=== PATIENT | female | born 1980 | race Caucasian/White ===

== ENCOUNTER → 2021-05-17 08:50 | Outpatient (CLI) | payer SELFPAY | DX: Z02.1 Encounter for pre-employment examination (principal) ==

== ENCOUNTER → 2021-08-26 07:26 | Outpatient (CLI) | payer OTHER, SELFPAY ==
[2021-08-25 18:41] LABS: Vitamin B12 670 pg/mL (239-931)
== END ==
PROVIDERS: PCP Family Medicine; Visit Provider Nurse Practitioner Family
DX: H33.102 Unspecified retinoschisis, left eye (principal); H53.9 Unspecified visual disturbance; R29.2 Abnormal reflex; R51.9 Headache, unspecified
CPT/HCPCS: 82607; 82746

== ENCOUNTER → 2021-09-02 07:15 | Outpatient (CLI) | payer OTHER, SELFPAY ==
--- NOTE | 2021-09-02 07:15 | MR_ITS ---
FINAL REPORT CLINICAL HISTORY: new onset visual disturbance, worsening PUENTE. MIGRAINE HEADACHE. VISUAL DISTURBANCE FOR 2 WEEKS. FINDINGS: Multiplanar MR imaging of the brain was performed without contrast. There is no evidence of intracranial hemorrhage or mass. The ventricular size is normal. There is no evidence of shift of the midline structures. No abnormal extra-axial fluid collection is identified. The posterior fossa and brainstem have an unremarkable appearance. No area of abnormal restricted diffusion is identified. Normal major vessel vascular flow voids are seen. IMPRESSION: Unremarkable brain with no acute intracranial abnormality. Reviewed, Interpreted and Dictated by Gianni Rincon III, MD Transcribed by Mayra Celestin Authenticated and [facility]
== END ==
PROVIDERS: PCP Family Medicine; Visit Provider Nurse Practitioner Family
DX: R51.9 Headache, unspecified (principal); H33.102 Unspecified retinoschisis, left eye; H53.9 Unspecified visual disturbance; R29.2 Abnormal reflex
CPT/HCPCS: 70551

== ENCOUNTER → 2021-09-23 10:29 | Outpatient (CLI) | payer OTHER, SELFPAY | PROVIDERS: Visit Provider Nurse Practitioner Family | DX: R51.9 Headache, unspecified (principal); H33.102 Unspecified retinoschisis, left eye; H53.9 Unspecified visual disturbance; R29.2 Abnormal reflex | CPT/HCPCS: 94762 ==

== ENCOUNTER → 2022-02-07 08:11 | Outpatient (REF) | payer OTHER, SELFPAY | LOC: UTC.OUT 08:11 | PROVIDERS: PCP Family Medicine; Visit Provider Nurse Practitioner | DX: Z20.822 Contact with and (suspected) exposure to COVID-19 (principal) ==

== ENCOUNTER 2023-09-28 16:07 | Outpatient (CLI) | payer OTHER, SELFPAY ==
[2023-09-28 16:24] LABS: Basophils # 0.1 K/mm3 (0-0.2); Basophils % 1.6 % (0.1-2.0); Eosinophils % 0.5 % (0.1-12.0); Hematocrit 42.5 % (37.0-47.0); Hemoglobin 14.6 g/dL (12.2-16.2); Lymphocytes # 1.7 K/mm3 (0.7-4.5); Lymphocytes % 34.7 % (10-50); Mean Corpuscular HGB Conc 34.4 g/dL (31.8-35.4); Mean Corpuscular Hemoglobin 33.1 pg (27.0-31.2); Mean Corpuscular Volume 96.3 fl (81-99); Mean Platelet Volume 8.3 fl (7.4-10.4); Monocytes # 0.3 K/mm3 (0.1-1.0); Monocytes % 5.2 % (1.7-9.3); Neutrophils # 2.9 K/mm3 (1.8-7.8); Neutrophils % 57.9 % (37.0-80.0); Platelet Count 336 K/mm3 (142-424); Red Blood Count 4.41 M/mm3 (4.20-5.40)
[2023-09-28 16:52] LABS: Alanine Aminotransferase 19 U/L (12-78); Albumin Level 4.6 g/dl (3.5-5.0); Albumin/Globulin Ratio 1.6 (1.1-1.8); Alkaline Phosphatase 58 U/L (38-126); Anion Gap 10.5 mEq/L (5-15); Aspartate Amino Transferase 22 U/L (14-36); Bilirubin,Total 0.7 mg/dl (0.2-1.3); Blood Urea Nitrogen 14 mg/dl (7-17); Calcium 9.2 mg/dl (8.4-10.2); Carbon Dioxide 26 mmol/L (22.0-30.0); Chloride 105 mmol/L (98-107); Chol/HDL Ratio 2.6 (1-3.5); Cholesterol 263 mg/dl (140-200); Estimated Glomerular Filt Rate 69 ml/min (>60); GFR (African American) 83 ML/MIN (>60); Globulin 2.9 g/dL (1.3-3.2); Glucose 63 mg/dl (74-100); HDL Cholesterol 102 mg/dl (40-60); Potassium 3.5 mmoL/L (3.5-5.1); Sodium 138 mmol/L (136-145); Total Protein,Serum 7.5 g/dl (6.3-8.2); Triglycerides 46 mg/dl (30-150); Uric Acid 4.2 mg/dl (2.5-6.2); VLDL Cholesterol 9 mg/dL (0-40)
[2023-09-28 17:03] LABS: Direct LDL Cholesterol 130.91 mg/dL (100-129)
[2023-09-28 17:10] LABS: 25-OH Vitamin D, Total 52.6 ng/mL (30-100)
[2023-09-28 17:21] LABS: Hemoglobin A1C 4.3 % (4.0-6.0)
[2023-09-28 17:22] LABS: Thyroid Stimulating Hormone 1.09 uIU/mL (0.465-4.68)
== END 2023-09-28 23:59 | disposition home or self-care (01) ==
LOC: LAB.DROPOF 16:07
PROVIDERS: PCP Nurse Practitioner Obstetrics & Gynecology; Visit Provider Nurse Practitioner Obstetrics & Gynecology
DX: Z01.419 Encounter for gynecological examination (general) (routine) without abnormal findings (principal)
CPT/HCPCS: 80050; 80053; 80061; 82306; 83036; 83525; 84443; 84550; 85025

== ENCOUNTER 2024-06-11 16:06 | Outpatient (CLI) | payer OTHER, SELFPAY ==
--- NOTE | 2024-06-11 16:30 | MM_ITS ---
PROCEDURE INFORMATION: Exam: Bilateral Screening 3D Mammography Exam date and time: 06/11/2024 4:11 PM Age: 44 years old Clinical indication: Screening examination. TECHNIQUE: Imaging protocol: Bilateral Screening tomosynthesis and 2D mammography including computer-aided detection (CAD) when performed. COMPARISON: No relevant prior studies available. FINDINGS: MAMMOGRAPHY: Breast composition: The breasts are heterogeneously dense, which may obscure small masses. Mass: None. Architectural distortion: None. Calcifications: No suspicious calcifications. Asymmetric density: None. Skin thickening: None. Axillary adenopathy: None. Implants: Post pectoral silicone implants are present. The contours are smooth. IMPRESSION: No mammographic evidence of malignancy. Annual screening is recommended unless otherwise clinically indicated. ASSESSMENT: BI-RADS Category 1: Negative.
== END 2024-06-11 23:59 | disposition home or self-care (01) ==
LOC: RAD 16:06
PROVIDERS: PCP Nurse Practitioner Obstetrics & Gynecology; Visit Provider Nurse Practitioner Obstetrics & Gynecology
DX: Z12.31 Encounter for screening mammogram for malignant neoplasm of breast (principal)
CPT/HCPCS: 77063; 77067

== ENCOUNTER 2024-12-08 11:22 | Outpatient (CLI) | payer OTHER, SELFPAY ==
--- OUTSIDE RECORDS SUMMARY | 2023-10-05 11:00 | XMS_ITS ---
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 :1980 A ge:43 Y S ex:Female Date:10/05/2023 Address:[address] [place], [place] [id number] Subjective: * Chief Complaints: * 1 . Check up. * Medical History: Objective: * Vitals: Assessment: Plan: * Treatment: * Images: Billing Information: * Visit Code: * Procedure Codes: * Electronic signature of Abbi Frost MD on 12/09/2024 at 11:24 AM EDT Sign off status: Pending * Provider: Heber Frost M.D. Date: 0 10/05/2023 Generated for Kelyl hinson/Noble/eTransmalonzo on: 1 11:24 AM EDT
[2024-12-08 17:18] LABS: Hematocrit 41.6 % (37.0-47.0); Hemoglobin 13.8 g/dL (12.2-16.2); Immature Granulocytes % 0.2 %; Mean Corpuscular HGB Conc 33.2 g/dL (31.8-35.4); Mean Corpuscular Hemoglobin 31.4 pg (27.0-31.2); Mean Corpuscular Volume 94.5 fl (81-99); Nucleated Red Blood Cells % 0 %; Platelet Count 260 K/mm3 (142-424); Red Blood Count 4.40 M/mm3 (4.20-5.40); Red Cell Distribution Width-SD 43.4 fL; White Blood Count 4.2 K/mm3 (4.8-10.8)
[2024-12-08 18:59] LABS: Alanine Aminotransferase 44 U/L (12-78); Albumin Level 4.6 g/dl (3.5-5.0); Albumin/Globulin Ratio 1.9 (1.1-1.8); Alkaline Phosphatase 89 U/L (38-126); Anion Gap 15.0 mEq/L (5-15); Aspartate Amino Transferase 36 U/L (14-36); Bilirubin,Total 0.9 mg/dl (0.2-1.3); Blood Urea Nitrogen 22 mg/dl (7-17); Calcium 9.3 mg/dl (8.4-10.2); Carbon Dioxide 28 mmol/L (22.0-30.0); Chloride 99 mmol/L (98-107); Cholesterol 309 mg/dl (140-200); Globulin 2.4 g/dL (1.3-3.2); Glucose 51 mg/dl (74-100); HDL Cholesterol 103 mg/dl (40-60); Magnesium 2.2 mg/dl (1.6-2.3); Potassium 4.0 mmoL/L (3.5-5.1); Sodium 138 mmol/L (136-145); Total Protein,Serum 7.0 g/dl (6.3-8.2); Triglycerides 59 mg/dl (30-150)
[2024-12-08 19:04] LABS: Creatinine,Serum 1.90 mg/dl (0.52-1.04); Estimated Glomerular Filt Rate 29 ml/min (>60); GFR (African American) 35 ML/MIN (>60)
[2024-12-08 19:30] LABS: Thyroid Stimulating Hormone 0.94 uIU/mL (0.465-4.68)
[2024-12-08 20:17] LABS: Ferritin 69.0 ng/ml (6.24-137)
[2024-12-08 21:11] LABS: Hemoglobin A1C 4.7 % (4.0-6.0)
--- OUTSIDE RECORDS SUMMARY | 2024-12-09 11:24 | XMS_ITS | Patient Health Record ---
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 Name Role Phone Nithin Frost Primary Care Provider Allergies No Known Allergies Reason For Referral No Information Medications Medication SIG (Take, Route, Frequency, Duration) Notes Start Date End Date Status Qulipta 60 MG 1 tab(s) orally once a day; Duration: 30 day(s) Active Aspirin 81 MG 1 tab(s) orally once a day; Duration: 30 day(s) Active Multiple Vitamin - 1 cap(s) orally once a day; Duration: 30 day(s) Active Norethindrone 0.35 MG 1 tab(s) orally on ce a day; Duration: 28 day(s) Active Melatonin 5 MG 1 tab(s) orally once a day (at bedtime) Active Rizatriptan Benzoate 10 MG 1 tab(s) oral ly once a day Active Plan Of Treatment No Information Insurance Providers Payer Name Payer Address Payer Phone Subscriber Number Group Number Insured Name Patient Relationship to Insured Coverage Start Date Coverage End Date [facility] [address] [address] [place] [phone] [id number] BERNADETTE HUGHES Self - patient is the insured Medical (General) History Medical History History ICD Code migraine headache Surgical History Surgery Date(Month/Year) Breast Augmentation 06/2015 [place] Tooth Extraction 2001 07/21/2017 08/01/2019 Hospitalization History Reason Date(Month/Year) See Above
[2024-12-10 12:15] LABS: Insulin Level Total 3.5 uIU/mL (2.6-24.9)
== END 2024-12-08 23:59 | disposition home or self-care (01) ==
LOC: LAB.DROPOF 12-09 11:22
PROVIDERS: PCP Nurse Practitioner Obstetrics & Gynecology; Visit Provider Nurse Practitioner Obstetrics & Gynecology
DX: Z00.00 Encounter for general adult medical examination without abnormal findings (principal); E55.9 Vitamin D deficiency, unspecified
CPT/HCPCS: 80053; 80061; 82652; 82728; 83036; 83525; 83735; 84443; 85025

== ENCOUNTER 2024-12-12 12:44 | Outpatient (CLI) | payer OTHER, SELFPAY ==
--- OUTSIDE RECORDS SUMMARY | 2023-10-05 11:00 | XMS_ITS ---
Author Organization [facility] Address [address] [facility] [address] [place] [id number] Care Team Providers Care Childcare Worker Name Role Phone Nithin Frost Primary Care Provider REASON FOR VISIT check up Encounters Encounter Location Date Provider Diagnosis [facility] [address] [facility] [address] [facility] [address] [phone] 10/05/2023 Nithin Frost Plan Of Treatment No Information Progress Notes * BERNADETTE HUGHESDOB: 3 (44 yo F)Acc No.[id number]:10/05/2023 Progress Notes Patient: BERNADETTE [facility] Provider: Heber Frost M.D. :1980 A ge:43 Y S ex:Female Date:10/05/2023 Address:[address] [place], [place] [phone] Subjective: * Chief Complaints: * 1 . Check up. * Medical History: Objective: * Vitals: Assessment: Plan: * Treatment: * Images: Billing Information: * Visit Code: * Procedure Codes: * Electronic signature of Abbi Frost MD on 12/15/2024 at 12:47 PM EDT Sign off status: Pending * Provider: Heber Frost M.D. Date: 0 10/05/2023 Generated for Kelly hinson/Noble/eTransmitting on: 1 12:47 PM EDT
[2024-12-12 17:35] LABS: Alanine Aminotransferase 39 U/L (12-78); Albumin Level 4.6 g/dl (3.5-5.0); Albumin/Globulin Ratio 2.1 (1.1-1.8); Alkaline Phosphatase 82 U/L (38-126); Anion Gap 13.6 mEq/L (5-15); Aspartate Amino Transferase 29 U/L (14-36); Bilirubin,Total 0.7 mg/dl (0.2-1.3); Blood Urea Nitrogen 19 mg/dl (7-17); Calcium 9.3 mg/dl (8.4-10.2); Carbon Dioxide 27 mmol/L (22.0-30.0); Chloride 99 mmol/L (98-107); Creatinine,Serum 0.90 mg/dl (0.52-1.04); Estimated Glomerular Filt Rate 69 ml/min (>60); GFR (African American) 83 ML/MIN (>60); Globulin 2.2 g/dL (1.3-3.2); Glucose 57 mg/dl (74-100); Potassium 4.6 mmoL/L (3.5-5.1); Sodium 135 mmol/L (136-145); Total Protein,Serum 6.8 g/dl (6.3-8.2)
--- OUTSIDE RECORDS SUMMARY | 2024-12-15 12:48 | XMS_ITS | Patient Health Record ---
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
== END 2024-12-12 23:59 ==
LOC: LAB.DROPOF 12-15 12:45
PROVIDERS: Nurse Practitioner Obstetrics & Gynecology; Visit Provider Obstetrics & Gynecology
DX: R79.89 Other specified abnormal findings of blood chemistry (principal)
CPT/HCPCS: 80053